=== PATIENT | male | born 1995 | race Caucasian/White ===

== ENCOUNTER 2021-03-14 20:00 | Emergency (ER) | payer MEDICAID, SELFPAY ==
[2021-03-14 21:15] VITALS: BP 122/59; PULSE 95; RESP 16; TEMP 36.4; O2SAT 98; BMI 30.9
--- NOTE | 2021-03-14 22:46 | ED.WOUNDLAC ---
HPI - Wound/Laceration General Chief Complaint: Wound/Laceration Stated Complaint: eyebrow inj Time Seen by Provider: 03/14/21 22:45 Source: patient Mode of arrival: ambulatory Limitations: no limitations History of Present Illness HPI narrative: hit heads with another player while playing basketball no LOC, no vomiting, laceration near R eyebrow Onset (ago): hour(s) Location: face Place: outdoors Patient tetanus UTD: Yes Context: accidental Associated symptoms: none Treatments prior to arrival: cold therapy Related Data Allergies Allergy/AdvReac Type Severity Reaction Status Date / Time bee pollen [BEE STINGS] Allergy Unknown ANAPHYLAXIS Unverified 08/17/20 16:25 pollen extracts [POLLEN] Allergy Unknown WATERY/ITCHY Unverified 08/17/20 16:25 EYES Review of Systems Review of Systems: Constitutional : No Fever, No Chills, Cardiovascular : No Chest Pain, No SOB Respiratory : No Dyspnea Gastrointestinal : No abdominal pain Musculoskeletal : No Joint Swelling Skin : No rash, positive skin laceration Neuro : No Weakness, No Numbness Psych : No SI/HI PMFSH Past Medical History Attestation statement: The following information was validated with the patient. Medical History No known health problems Social History Social History (Updated 03/14/21 @ 23:00 by Jyoti Meeks DO) Smoking Status: Never smoker Use of substances other than those prescribed or required for medical reasons: No Physical Exam Vital Signs: Vital Signs: Last Vital Signs Temp 97.6 F 03/14/21 21:15 Pulse 95 03/14/21 21:15 Resp 16 03/14/21 21:15 BP 122/59 L 03/14/21 21:15 Pulse Ox 98 03/14/21 21:15 Body Mass Index 30.9 Appearance: Alert. Oriented X3. No acute distress. Eyes: Pupils equal, round and reactive to light. ENT: Pharynx normal. R eyebrow area above and lateral 2 cm linear laceration noted, bleeding controlled, no crepitus felt Neck: Normal inspection. Neck supple. CVS: Normal heart rate and rhythm. Pulses normal. Respiratory: No respiratory distress. Breath sounds normal. Abdomen: Soft and nontender. Skin: Skin warm and dry. Normal skin color. Normal skin turgor. Extremities: No lower extremity edema. No calf ttp Neuro: Oriented X 3. No motor deficit. No sensory deficit. Procedures Laceration Laceration 1: Site: face Side (If applicable): left Size (cm): 2 Description: linear Depth: simple, single layer Pre-repair: wound explored and irrigated extensively Skin layer closed with: other (dermabond) MDM - Wound/Laceration MDM Narrative Medical decision making narrative: 25 yo male no AC therapy, GCS 15, no LOC, no vomiting, neuro intact here with laceration to R eyebrow patient offered sutures but wants dermabond due to a scar there would look cool. does not need CT head at this time, DC home with precautions Discharge Plan Discharge Clinical Impression: Laceration Head injury Qualifiers: Encounter type: initial encounter Qualified Code(s): S09.90XA - Unspecified injury of head, initial encounter Patient Disposition: Home, Self-Care Instructions: Skin Adhesive Care (ED), Facial Laceration (ED) Additional Instructions: return to ED for any worsening symptoms or concerns
[2021-03-14 22:57] VITALS: BP 121/71; PULSE 94; O2SAT 97
== END 2021-03-14 23:13 | disposition home or self-care (01) ==
LOC: HO.ED 23:10
PROVIDERS: Emergency Provider Emergency Medicine
DX: S09.90XA Unspecified injury of head, initial encounter (principal); S01.111A Laceration without foreign body of right eyelid and periocular area, initial encounter; W50.0XXA Accidental hit or strike by another person, initial encounter; Y93.67 Activity, basketball; Y92.310 Basketball court as the place of occurrence of the external cause; Y99.9 Unspecified external cause status
CPT/HCPCS: 99283

== ENCOUNTER 2021-03-16 20:25 | Emergency (ER) | payer MEDICAID, SELFPAY ==
--- NOTE | ~2021-03-16 | CT_ITS ---
EXAMINATION: CT HEAD WITHOUT CONTRAST CLINICAL INFORMATION: Headache and syncope following head injury. COMPARISON: 02/07/2015. TECHNIQUE: Contiguous helical images of the brain were obtained without IV contrast. Multiplanar reconstructions were performed. DLP: 727 mGy-cm. FINDINGS: There are no pathologic extra-axial fluid collections. The lateral, third, fourth ventricles are nondilated and concordant with the appearance of the sulci. There is no evidence for acute intraparenchymal hemorrhage or infarct. There is neither mass nor mass effect. There is no shift of midline structures. The paranasal sinuses and mastoid air cells are clear. There are no osseous lesions. CT/CT head/brain wo con IMPRESSION: No evidence for acute intracranial injury. Automated exposure control (Care Dose) Adjustment of the mA and/or kv according to patient size (this includes techniques or standardized protocols for targeted exams where dose is matched to indication / reason for exam; i.e. extremities or head).
[2021-03-16 20:29] VITALS: BP 124/62; PULSE 105; RESP 18; TEMP 37; O2SAT 100; BMI 31.7
--- NOTE | 2021-03-16 22:42 | ECG_ITS ---
Test Reason : SYNCOPE Blood Pressure : / mmHG Vent. Rate : 113 BPM Atrial Rate : 113 BPM P-R Int : 126 ms QRS Dur : 086 ms QT Int : 334 ms P-R-T Axes : 043 013 040 degrees QTc Int : 458 ms Sinus tachycardia Otherwise normal ECG No previous ECGs available Referred By: Theodora Sotelo Electronically Signed By:Oren Akers
[2021-03-16 23:26] LABS: MANUAL DIFF FLAG NO
[2021-03-16 23:28] LABS: Basophils Percent Auto 0.2 % (0-2); Eosinophils Percent Auto 0.2 % (0-4); Hemoglobin 14.9 g/dl (14.0-18.0); Imm Gran Abs Auto 0.02 X10*3/uL (0.00-0.03); Imm Gran Pct Auto 0.2 % (0.0-0.4); Lymphocytes Absolute Auto 1.9 X10*3/uL (1.2-4.9); Lymphocytes Percent Auto 21.1 % (20-40); Mean Corpuscular HGB Conc 33.1 g/dl (31.0-36.0); Mean Corpuscular Hemoglobin 27.7 pg (27.0-33.0); Mean Corpuscular Volume 83.6 fL (80-98); Mean Platelet Volume 10.3 fL (9.4-12.4); Monocytes Absolute Auto 1.1 X10*3/uL (0.1-1.2); Monocytes Percent Auto 12.1 % (2-11); Neutrophils Absolute Auto 5.8 X10*3/uL (2.0-8.3); Neutrophils Percent Auto 66.2 % (45-73); Platelet Count 217 X10*3/uL (160-400); Red Blood Count 5.38 X10*6/uL (4.60-5.80); Red Cell Distribution Width 12.7 % (11.0-16.0); White Blood Count 8.8 X10*3/uL (4.8-10.8)
[2021-03-16 23:48] LABS: Anion Gap 13 (12-20); Blood Urea Nitrogen 11 mg/dL (9-16); Calcium 8.7 mg/dL (8.4-10.2); Carbon Dioxide 27 mmol/L (22-29); Chloride 102 mmol/L (96-108); Creatinine Clr Calc Pharmacy 132.9; Estimated Glomerular Filt Rate > 60; Glucose Random 91 mg/dL (60-115); Potassium 3.8 mmol/L (3.3-5.1); Sodium 138 mmol/L (135-145)
[2021-03-16 23:55] LABS: Troponin-I High Sensitivity < 3.5 ng/L (<3.5-35.0)
[2021-03-17] VITALS (12 sets, daily range): BP systolic 90–131; BP diastolic 38–77; PULSE 77–111; RESP 16; TEMP 37–37.1; O2SAT 93–98
--- NOTE | 2021-03-17 00:08 | ED.GENADULT ---
HPI - General Adult General Chief complaint: Syncope Stated complaint: syncope (head inj) Time Seen by Provider: 03/16/21 22:34 Source: patient Mode of arrival: ambulatory Limitations: no limitations History of Present Illness HPI narrative: Patient comes emergency room complaining of a syncopal episode earlier today. Patient states he was seen here on March 14, had a laceration to the right eyebrow, diagnosed with concussion. Patient states that he had a head injury while playing basketball. Patient states that today he is complaining of a headache, feeling nauseous. Patient states that approximately 20:00 he was sitting down and had a syncopal episode. Patient states that before he passed out, he had blurry vision. At this time, patient states that he has no longer blurry vision, other than the headache and nausea he has no other complaints. Related Data Previous Rx's Medication Instructions Recorded ondansetron HCl [Zofran] 4 mg PO Q6H PRN #10 tab 03/17/21 Allergies Allergy/AdvReac Type Severity Reaction Status Date / Time bee pollen [BEE STINGS] Allergy Unknown ANAPHYLAXIS Unverified 08/17/20 16:25 pollen extracts [POLLEN] Allergy Unknown WATERY/ITCHY Unverified 08/17/20 16:25 EYES Review of Systems Review of Systems: Constitutional : No Weight loss, No Fever, No Chills, No Night Sweats, No Fatigue, No Malaise ENT/Mouth : No Hearing loss, No Ear Pain, No Nasal Congestion, No Sinus Pain, No Hoarseness, No sore throat, No Rhinorrhea, No Swallowing Difficulty Eyes: No Eye Pain, No Swelling, No Redness, No Foreign Body, No Discharge, states he has visual changes right before passing out, no longer having any visual changes Cardiovascular : No Chest Pain, No SOB, No Dyspnea on Exertion, No Orthopnea, No Edema, No Palpitations Respiratory : No Cough, No Sputum, No Wheezing, No Smoke Exposure, No Dyspnea Gastrointestinal : No Nausea, No Vomiting, No Diarrhea, No Constipation, No abdominal Pain, No Hematochezia, No Melena Genitourinary : no irregular bleeding, No Dysuria, No Urinary Frequency, No Hematuria, No Urinary Incontinence, No Urgency, No Flank Pain, No Urinary Flow Changes, No Hesitancy Musculoskeletal : No joint pain, No Myalgias, No Joint Swelling Skin : No Skin Lesions, No rash Neuro : No Weakness, No Numbness, No Paresthesias, complaining of headache, loss of consciousness Psych : No Anxiety/Panic, No Depression, No SI/HI/AH/VH, No Social Issues, Heme/Lymph: No Bruising, No Bleeding,No Lymphadenopathy Endocrine : No Polyuria, No Polydipsia, No Temperature Intolerance [facility] Past Medical History Medical History No known health problems Social History Social History (Updated 03/14/21 @ 23:00 by Jyoti Meeks DO) Smoking Status: Never smoker Advance Directives: No Advance Directives Information Provided: Yes Physical Exam Vital Signs: Vital Signs: Last Vital Signs Temp 98.6 F 03/17/21 01:59 Pulse 100 03/17/21 04:01 Resp 16 03/17/21 03:00 BP 117/38 L 03/17/21 04:01 Pulse Ox 93 03/17/21 03:00 Body Mass Index 31.7 Appearance: Alert. Oriented X3. No acute distress. Eyes: Pupils equal, round and reactive to light. ENT: Pharynx normal. Neck: Normal inspection. Neck supple. No lymph nodes noted. No crepitus CVS: Normal heart rate and rhythm. Pulses normal. Normal S1 and S2 Respiratory: No respiratory distress. Breath sounds normal. No Wheezing. No rales Abdomen: Soft and nontender. No rigidity. No distention. good BS x4 Skin: Skin warm and dry. Normal skin color. Normal skin turgor. Extremities: No lower extremity edema. No lower extremity edema. No Lacerations. No Rash Neuro: Oriented X 3. No motor deficit. No sensory deficit. Moving all extermities. No slurred speech. Course Course Course Narrative: Patient likely has a concussion. Patient's visual acuity test within normal limits. After 2 L of normal saline, patient's orthostatic within normal limits. Patient walking steadily to bathroom, not feeling dizzy. Patient ready for discharge Medical Decision Making Lab Data Result diagrams: 03/16/21 23:22 03/16/21 23:22 Labs: Lab Results 03/16/21 03/16/21 03/16/21 Range/Units 23:22 23:22 23:22 WBC 8.8 (4.8-10.8) X10*3/uL RBC 5.38 (4.60-5.80) X10*6/uL Hgb 14.9 (14.0-18.0) g/dl Hct 45.0 (42-52) % MCV 83.6 (80-98) fL MCH 27.7 (27.0-33.0) pg MCHC 33.1 (31.0-36.0) g/dl RDW 12.7 (11.0-16.0) % Plt Count 217 (160-400) X10*3/uL MPV 10.3 (9.4-12.4) fL Immature Gran % (Auto) 0.2 (0.0-0.4) % Neut % (Auto) 66.2 (45-73) % Lymph % (Auto) 21.1 (20-40) % Baldwin % (Auto) 12.1 H (2-11) % Eos % (Auto) 0.2 (0-4) % Baso % (Auto) 0.2 (0-2) % Lymph # (Auto) 1.9 (1.2-4.9) X10*3/uL Baldwin # (Auto) 1.1 (0.1-1.2) X10*3/uL Eos # (Auto) 0.0 (0.0-0.4) X10*3/uL Baso # (Auto) 0.0 (0.0-0.2) X10*3/uL Abs Immat Gran (auto) 0.02 (0.00-0.03) X10*3/uL Absolute Neuts (auto) 5.8 (2.0-8.3) X10*3/uL Absolute Nucleated RBC 0.000 (0.0-0.012) X10*3/uL Nucleated RBC % (auto) 0.0 (0.0-0.2) /100WBC Sodium 138 (135-145) mmol/L Potassium 3.8 (3.3-5.1) mmol/L Chloride 102 (96-108) mmol/L Carbon Dioxide 27 (22-29) mmol/L Anion Gap 13 (12-20) BUN 11 (9-16) mg/dL Creatinine 0.83 (0.5-1.4) mg/dL Estim Creat Clear Calc 132.9 Estimated GFR > 60 Random Glucose 91 (60-115) mg/dL Calcium 8.7 (8.4-10.2) mg/dL Troponin I High Sens < 3.5 (<3.5-35.0) ng/L Imaging Data CT scan - head: Radiologist's impression: FINDINGS: There are no pathologic extra-axial fluid collections. The lateral, third, fourth ventricles are nondilated and concordant with the appearance of the sulci. There is no evidence for acute intraparenchymal hemorrhage or infarct. There is neither mass nor mass effect. There is no shift of midline structures. The paranasal sinuses and mastoid air cells are clear. There are no osseous lesions. CT/CT head/brain wo con IMPRESSION: No evidence for acute intracranial injury. ECG Data Attestation: I personally reviewed and interpreted this ECG as follows: (Heart rate 113, sinus tachycardia, no ST segment depression or elevation, nonspecific T-wave abnormality in lead 3, QTC 458) Discharge Plan Discharge Clinical Impression: Orthostatic hypotension Concussion Qualifiers: Encounter type: subsequent encounter Patient Disposition: Home, Self-Care Instructions: Concussion (ED), Hypotension (ED) Additional Instructions: Please follow-up with your primary care physician tomorrow. If you have any worsening or new symptoms, please return to the emergency room or call 911 Prescriptions: New ondansetron HCl [Zofran] 4 mg tablet 4 mg PO Q6H PRN (Reason: nausea and vomiting) Qty: 10 RF: 0 Stand Alone Forms: Work/School Release Interventions: ED Discharge Assessment Last Done: 03/17/21 04:43 Discharge Date/Time: 03/17/21 04:44
--- NOTE | 2021-03-17 00:08 | PC.NURSE ---
pt resting quietly with lights off. pt requested a vicki britton, but medicated with zofran first. pt reports vomit x 1 after getting to room.
[2021-03-17] MEDS: 0.9 % Sodium Chloride 1,000 ML 999 ML IV (01:25)
[2021-03-17] MEDS: Acetaminophen 325 MG TABLET 650 MG PO (01:25)
[2021-03-17] MEDS: 0.9 % Sodium Chloride 1,000 ML 999 ML IVCONT (03:20)
== END 2021-03-17 04:44 | disposition home or self-care (01) ==
PROVIDERS: Emergency Provider Emergency Medicine
DX: I95.1 Orthostatic hypotension (principal); S06.0X0A Concussion without loss of consciousness, initial encounter; W03.XXXA Other fall on same level due to collision with another person, initial encounter; Y93.67 Activity, basketball; Y92.310 Basketball court as the place of occurrence of the external cause; Y99.9 Unspecified external cause status
CPT/HCPCS: 36415; 70450; 80048; 84484; 85025; 93005; 96360; 96361; 99284

== ENCOUNTER 2022-03-22 23:53 | Emergency (ER) | payer MEDICAID, SELFPAY ==
[2022-03-23 00:18] VITALS: BP 125/79; PULSE 113; RESP 18; TEMP 37.4; O2SAT 98; BMI 30.7
[2022-03-23 00:29] LABS: Influenza A Negative (Negative); Influenza B2 Negative (Negative)
[2022-03-23 00:29] LABS: COVID-19 Test Negative (Negative); IDNOW Serial# 55D5AD1C
--- NOTE | 2022-03-23 00:53 | ED_ITS ---
HPI - General Adult General Chief complaint: Upper Respiratory Symptoms Stated complaint: body aches, fever Time Seen by Provider: 03/23/22 00:44 Source: patient Mode of arrival: ambulatory Limitations: no limitations History of Present Illness HPI narrative: This is a 26-year-old male no significant medical history presenting to the emergency department with complaints of headache, body aches, subjective fevers and chills since this morning. Patient tells me he woke up this morning feeling horrible having diffuse body aches and pains, he tells me he is having headache mostly to the back of his head, he tells me it feels like his typical headache, he denies vision changes, neck pain, dizziness, head trauma. He tells me that the body aches came on suddenly however the headache was gradual in at times he tells me the headache goes away. Patient tells me earlier today he had some chest tightness however he is not having at this time. Patient tells me he is still able to smell things however he tells me he is sense of taste is altered in nothing taste right. At this time he denies chest pain, shortness of breath, nausea, vomiting, abdominal pain, diarrhea, weakness, dizziness, vision changes, neck pain, leg swelling, photophobia, calf pain, rhinnorhea, cough at this time. Patient does not have his vaccination for flu or COVID. Onset (ago): day(s) (1) Location: head Radiation: non-radiation Relieving factors: none Exacerbating factors: none Associated symptoms: denies other symptoms Treatments prior to arrival: none Related Data Previous Rx's Medication Instructions Recorded ondansetron HCl 4 mg tablet 4 mg PO Q6H PRN #10 tab 03/17/21 (Zofran) ondansetron 4 mg disintegrating 4 mg PO ONCE PRN #10 tab 03/23/22 tablet Allergies Allergy/AdvReac Type Severity Reaction Status Date / Time bee pollen [BEE STINGS] Allergy Unknown ANAPHYLAXIS Verified 03/23/22 00:21 pollen extracts [POLLEN] Allergy Unknown WATERY/ITCHY Verified 03/23/22 00:21 EYES Review of Systems Review of Systems: Constitutional : No Weight loss, + Fever, + Chills, + Fatigue, + Malaise ENT/Mouth : No sore throat, No Rhinorrhea Eyes: No Eye Pain, No Swelling, No Redness Cardiovascular : No Chest Pain, No SOB, No Dyspnea on Exertion, No Orthopnea, No Edema, No Palpitations Respiratory : No Cough, No Sputum, No Wheezing Gastrointestinal : No Nausea, No Vomiting, No Diarrhea, No Constipation, No abdominal Pain, No Hematochezia, No Melena Genitourinary : No Dysuria, No Urinary Frequency, No Hematuria, Musculoskeletal : No joint pain, No Myalgias, No Joint Swelling Skin : No Skin Lesions, No rash Neuro : No Weakness, No Numbness, No Dizziness, + Headache All other systems reviewed and are negative Yes all other systems are reviewed and are negative [facility] Past Medical History Attestation statement: The following information was validated with the patient. Source: old records reviewed and nursing notes reviewed Medical History No known health problems Social History Social History Advance Directives: No Physical Exam ED Vital Signs: Vital Signs - 24 hr 03/23/22 00:18 Temperature 99.3 F Pulse Rate 113 H Respiratory Rate 18 Blood Pressure 125/79 Pulse Oximetry 98 BMI result Body Mass Index 30.7 Vital signs stable Appearance: Alert.? Oriented X3.? No acute distress.? Head: Normocephalic, atraumatic, no step-offs or deformities Eyes: Pupils equal, round and reactive to light.? ENT: Pharynx normal.? Neck: Normal inspection.? Neck supple.? Negative Kernig and Brudzinski. No meningeal signs CVS: Normal heart rate and rhythm.? Pulses normal.? Respiratory: No respiratory distress.? Breath sounds normal.? Abdomen: Soft and nontender.? Skin: Skin warm and dry.? Normal skin color.? Normal skin turgor.? Extremities: No lower extremity edema.? No calf ttp, negative Jeffrey bilaterally. 5/5 strength to bilateral upper and lower extremities Back: No midline tenderness, no C-spine tenderness, full range of motion, no CVA tenderness bilaterally Neuro: Oriented X 3.? No motor deficit.? No sensory deficit. CN 2-12 intact Course Reevaluation(s) Reevaluation #1: Educated patient that he can take ibuprofen every 6 hours, Tylenol every 4 as needed for body aches or pains. I also educated him that since symptoms started this morning it is probably a good idea to retest in 2-3 days. Advised him to return with any new or worsening symptoms. At this time I feel comfortable discharge home likely viral infection. Time: 00:57 Medical Decision Making [facility] Narrative Medical decision making narrative: [address]55 26-year-old male no medical history presents with sudden-onset fevers this morning, malaise, fatigue, body aches, headache which started this morning. Physical examination benign. Neuro exam nonfocal. Cerebellar function intact. Vital signs stable, he is noted to be slightly tachycardic however likely secondary to low-grade fever from viral infection. History and physical examination not consistent with ICH, complex migraine, posterior infarct, stroke. Likley flu, covid or viral infection . Lungs clear unlikely that this is pneumonia. No meningeal signs unlikely that this is meningitis. Plan at this time is to obtain flu/covid swab Medical Records Medical records reviewed: Yes I reviewed the patient's medical records. Lab Data Lab results reviewed: Yes I reviewed the patient's lab results. Labs: Lab Results 03/23/22 03/23/22 Range/Units 00:08 00:09 COVID-19 ([facility]) Negative (Negative) COVID-19 Clin Com See Note Influenza Type A (SHAUN) Negative (Negative) Influenza Type B (SHAUN) Negative (Negative) Influenza A & B Note See Note Critical Care Time Critical Care Time Critical Care Time: No Discharge Plan Discharge Clinical Impression: Viral infection Patient Disposition: Home, Self-Care Additional Instructions: Take your medications as prescribed. If you were prescribed antibiotics today, it is important that you take your medication to their entirety, do not skip any doses, do not finish them early. Follow-up with your primary care provider this week. Return to the emergency department with new or worsening symptoms. Such as fevers, chills, chest pain, shortness of breath, nausea, vomiting, dizziness, headache, vision changes, lethargy, weakness, not eating or drinking In case of emergency call 911 Today you tested negative for influenza and COVID. I recommend you get retested for both in 2-3 days as your symptoms just started today it is likely that you tested negative because it is too soon to test. Please quarantine/isolate until you retest. Zofran is medication that has been sent to her pharmacy please take this as prescribed, do not take more than the prescribed dose. This can be used for nausea or vomiting. Make sure you get plenty of rest and drink plenty of fluids. Prescriptions: New ondansetron 4 mg tablet,disintegrating 4 mg PO ONCE PRN (Reason: nausea and vomiting) Qty: 10 0RF No Action ondansetron HCl [Zofran] 4 mg tablet 4 mg PO Q6H PRN (Reason: nausea and vomiting) Qty: 10 0RF Referrals: Physician,Unknown J [Primary Care Provider] - 3 days Stand Alone Forms: Work/School Release
[2022-03-23] MEDS: Ketorolac Tromethamine 15 MG/ML VIAL 30 MG IM (01:11)
[2022-03-23] MEDS: diphenhydrAMINE HCL 25 MG TABLET PO (01:12)
== END 2022-03-23 01:18 | disposition home or self-care (01) ==
PROVIDERS: Emergency Provider Internal Medicine
DX: B34.9 Viral infection, unspecified (principal); M79.10 Myalgia, unspecified site; R50.9 Fever, unspecified; Z20.822 Contact with and (suspected) exposure to COVID-19; Z79.899 Other long term (current) drug therapy
CPT/HCPCS: 87502; 87635; 96372; 99283; 99284; J1885; Q0163

== ENCOUNTER 2022-04-17 08:57 | Emergency (ER) | payer MEDICAID, SELFPAY ==
[2022-04-17 09:01] VITALS: BP 135/78; PULSE 77; RESP 18; TEMP 36.7; O2SAT 98; BMI 29.0
[2022-04-17 09:22] LABS: COVID-19 Test Positive (Negative)
[2022-04-17 09:39] LABS: IDNOW Serial# 16C4AD1C; Influenza A Negative (Negative); Influenza B2 Negative (Negative)
--- NOTE | 2022-04-17 12:37 | ED_ITS ---
HPI - General Adult General Chief complaint: General Medical Stated complaint: throat, possible covid Time Seen by Provider: 04/17/22 12:37 Source: patient Mode of arrival: ambulatory Limitations: no limitations History of Present Illness HPI narrative: Patient not feeling well for 4 days, home COVID is positive. He has a little cough. Patient is not vaccinated Onset (ago): day(s) Severity: mild Associated symptoms: cough Treatments prior to arrival: none Related Data Previous Rx's Medication Instructions Recorded ondansetron HCl 4 mg tablet 4 mg PO Q6H PRN #10 tab 03/17/21 (Zofran) acetaminophen 325 mg tablet 650 mg PO Q6H PRN #20 tab 03/23/22 (Tylenol) ondansetron 4 mg disintegrating 4 mg PO ONCE PRN #10 tab 03/23/22 tablet amoxicillin 875 mg tablet 875 mg PO BID #14 tab 04/17/22 [id number] 5 10 ml PO Q4H PRN #120 ml 04/17/22 mg-10 mg-100 mg/5 mL oral liquid Allergies Allergy/AdvReac Type Severity Reaction Status Date / Time bee pollen [BEE STINGS] Allergy Unknown ANAPHYLAXIS Verified 03/23/22 00:21 pollen extracts [POLLEN] Allergy Unknown WATERY/ITCHY Verified 03/23/22 00:21 EYES Review of Systems Constitutional: Constitutional: Reports no additional constitutional complaints Eyes: Eyes: Reports no additional eye complaints ENT: Denies dizziness Cardiovascular: Cardiovascular: Reports no additional cardiovascular complaints Respiratory: Respiratory: Reports as per HPI Gastrointestinal: Gastrointestinal: Reports no additional gastrointestinal complaints Musculoskeletal: Musculoskeletal: Reports no additional musculoskeletal complaints Integumentary/Breasts: Skin/Breast: Denies rash Neurologic: Reports system reviewed and no additional complaints, except as d ocumented, Denies dizziness and Denies Sensory deficit (Neuro) Psychiatric: Psychiatric: Denies anxiety PMFSH Past Medical History Medical History No known health problems Physical Exam ED Vital Signs: Vital Signs - 24 hr 04/17/22 09:01 Temperature 98.1 F Pulse Rate 77 Respiratory Rate 18 Blood Pressure 135/78 Pulse Oximetry 98 BMI result Body Mass Index 29.0 Const General: healthy appearing Nutritional Appearance: average body habitus Orientation/consciousness: oriented to person and patient oriented x3 Limitations: no limitations HENMT Other: right TM with erythema and bulging Head: Yes normal to inspection Ears: external ears normal General nose exam: Normal external nose present Mouth: Normal oral and palatal mucosa present and oropharynx normal Throat: Yes posterior oropharynx normal Eyes General: appearance normal, both eyes and all related structures Neck Neck: Yes normal visual inspection Chest Chest palpation & inspection: normal inspection of the chest Resp Auscultation: clear to auscultation bilaterally Cardio Jugular venous distension: no JVD Rate: regular rate Rhythm: regular rhythm Heart sounds: S1 normal heart sound present and S2 normal heart sound present GI Inspection: Yes normal to inspection Palpation (GI): Soft to palpation, nontender and No hepatosplenomegaly present Auscultation: normal bowel sounds General: Yes no CVA tenderness Back/Spine/Pelvis Back: no CVA tenderness Skin General skin exam: no rashes or lesions noted Neuro General: oriented to person and patient oriented x3 Cranial nerves: Yes CN's II-XII intact bilaterally Motor exam (neuro): 5/5 motor strength present throughout Sensory Exam: No Sensory deficit (Neuro) Extrem General: Yes normal to inspection Psych Appearance: grossly normal Course Reevaluation(s) Reevaluation #1: patient with covid and right otitis media will start amoxicillin and robitussin and dc home Time: 12:46 Medical Decision Making Lab Data Labs: Lab Results 04/17/22 04/17/22 Range/Units 09:10 09:10 COVID-19 ([facility]) Positive A (Negative) COVID-19 Clin Com See Note Influenza Type A (SHAUN) Negative (Negative) Influenza Type B (SHAUN) Negative (Negative) Influenza A & B Note See Note Discharge Plan Discharge Clinical Impression: COVID-19, Otitis media Patient Disposition: Home, Self-Care Instructions: Ear Infection (ED), COVID-19 (Coronavirus Disease 2019) (ED) Prescriptions: New pycaseyqtdvzz-ZL-vsqhmhxvmym 5-10-100 mg/5 mL liquid 10 ml PO Q4H PRN (Reason: cough) Qty: 120 0RF amoxicillin 875 mg tablet 875 mg PO BID Qty: 14 0RF No Action ondansetron HCl [Zofran] 4 mg tablet 4 mg PO Q6H PRN (Reason: nausea and vomiting) Qty: 10 0RF ondansetron 4 mg tablet,disintegrating 4 mg PO ONCE PRN (Reason: nausea and vomiting) Qty: 10 0RF acetaminophen [Tylenol] 325 mg tablet 650 mg PO Q6H PRN (Reason: fever or pain) Qty: 20 0RF Referrals: Physician,None [Primary Care Provider] - 1 week Stand Alone Forms: Work/School Release
== END 2022-04-17 13:50 | disposition home or self-care (01) ==
PROVIDERS: Emergency Provider Emergency Medicine
DX: U07.1 COVID-19 (principal); H66.91 Otitis media, unspecified, right ear
CPT/HCPCS: 87502; 87635; 99283

== ENCOUNTER 2022-05-21 09:06 | Emergency (ER) | payer MEDICAID, SELFPAY ==
[2022-05-21 09:08] VITALS: BP 135/97; PULSE 100; RESP 18; TEMP 36.8; O2SAT 98; BMI 29.7
[2022-05-21] MEDS: Lidocaine 4 % Cream KIT 1 APPL TOPICAL (09:36)
--- NOTE | 2022-05-21 09:39 | ED_ITS ---
HPI - Extremity Problem General Chief complaint: Extremity Problem Stated complaint: finger right inj Time Seen by Provider: 05/21/22 09:23 Source: patient Mode of arrival: ambulatory Limitations: no limitations History of Present Illness HPI Narrative: 27-year-old male here with 3 days of right middle finger swelling, redness and pain. No fevers or chills. No known injury or trauma. Related Data Previous Rx's Medication Instructions Recorded ondansetron HCl 4 mg tablet 4 mg PO Q6H PRN nausea and 03/17/21 (Zofran) vomiting #10 tabs acetaminophen 325 mg tablet 650 mg PO Q6H PRN fever or pain 03/23/22 (Tylenol) #20 tabs ondansetron 4 mg disintegrating 4 mg PO ONCE PRN nausea and 03/23/22 tablet vomiting #10 tabs amoxicillin 875 mg tablet 875 mg PO BID #14 tabs 04/17/22 dextromethorphan-guaifenesin 5 10 ml PO Q4-8H PRN cough #118 mL 04/17/22 mg-100 mg/5 mL oral liquid (Robitussin Cough-Chest Congestion DM) doxycycline monohydrate 100 mg 100 mg PO BID #20 tabs 05/21/22 tablet Allergies Allergy/AdvReac Type Severity Reaction Status Date / Time bee pollen [BEE STINGS] Allergy Unknown ANAPHYLAXIS Verified 05/21/22 09:08 pollen extracts [POLLEN] Allergy Unknown WATERY/ITCHY Verified 05/21/22 09:08 EYES Review of Systems Review of Systems: Yes all other systems are reviewed and are negative Constitutional: Constitutional: Reports no additional constitutional complaints, Denies body ache(s), Denies chills, Denies fever(s), Denies headache(s) and Denies weakness Eyes: Eyes: Reports no additional eye complaints and Denies change in vision ENT: Reports system reviewed and no additional complaints, except as documented, Denies dizziness, Denies headache(s), Denies nasal congestion, Denies nasal discharge and Denies neck pain Cardiovascular: Cardiovascular: Reports no additional cardiovascular complaints, Denies chest pain, Denies leg edema and Denies dyspnea Respiratory: Respiratory: Reports no additional respiratory complaints, Denies cough and Denies dyspnea Gastrointestinal: Gastrointestinal: Reports no additional gastrointestinal complaints, Denies abdominal pain, Denies diarrhea, Denies nausea and Denies vomiting Genitourinary: Genitourinary: Denies urinary incontinence Musculoskeletal: Musculoskeletal: Reports no additional musculoskeletal complaints, Denies back pain, Denies arthralgias, Denies joint swelling, Denies neck pain, Denies numbness and Denies tingling Integumentary/Breasts: Skin/Breast: Reports system reviewed and no additional complaints, except as docu, Reports swelling, Reports erythema and Denies rash Neurologic: Reports system reviewed and no additional complaints, except as documented, Denies Abnormal speech present, Denies dizziness, Denies headache( s), Denies numbness, Denies tingling and Denies weakness [facility] Past Medical History Attestation statement: The following information was validated with the patient. Source: old records reviewed and nursing notes reviewed Medical History No known health problems Social History Social History Advance Directives: No Advance Directives Information Provided: No Physical Exam Vital Signs: Vital Signs: Last Vital Signs Temp 98.2 F 05/21/22 09:08 Pulse 100 05/21/22 09:08 Resp 18 05/21/22 09:08 BP 135/97 H 05/21/22 09:08 Pulse Ox 98 05/21/22 09:08 O2 Del Method 05/21/22 09:08 BMI result Body Mass Index 29.7 Const: General: cooperative, healthy appearing, comfortable and no acute distress Orientation/consciousness: patient oriented x3 Limitations: no limitations HEENT: Head: Yes normal to inspection Ears: hearing grossly normal bilaterally General nose exam: Normal external nose present Face and sinus: Yes normal facial exam Mouth: Normal oral and palatal mucosa present Throat: Yes posterior oropharynx normal Eyes: General: appearance normal, both eyes and all related structures Pupils: Equal, round and reactive pupils present Neck: Neck: Yes normal visual inspection Chest: Chest palpation & inspection: normal inspection of the chest Resp: Effort & Inspection: normal respiratory effort Auscultation: clear to auscultation bilaterally Cardio: Rate: regular rate Rhythm: regular rhythm Peripheral pulses: Peripheral pulses 2+ throughout GI: Inspection: Yes normal to inspection Palpation (GI): Soft to palpation and nontender Auscultation: normal bowel sounds Back/Spine/Pelvis: Thoracic/Lumbar Spine: thoracic and lumbar spine normal to inspection Skin: General skin exam: no rashes or lesions noted Neuro: General: patient oriented x3, no focal motor deficits and normal sensation to monofilament Cranial nerves: Yes Equal, round and reactive pupils present Cognition (Neuro): normal cognition Speech: No Abnormal speech present Gait exam (Neuro): Normal gait present Motor exam (neuro): 5/5 motor strength present throughout Extrem: Other: To the right hand to the 3rd digit to the distal aspect there is swelling, redness and fluctuance along the nail bed. There is full range of motion. Sensation is normal General: Yes normal to inspection Course Course Course Narrative: See procedure note. Bandage applied. Recommend warm compresses or warm soaks with Epson salts and oral antibiotics. Reviewed worrisome signs and symptoms of when to return to the emergency department. Comfortable discharge home MDM - Extremity (Nontraumatic) MDM Narrative Medical decision making narrative: 27-year-old male here with right 3rd digit paronychia. Will require I& D. Topical LMX for pain control apply Medical Records Attestation: I reviewed the patient's medical records. Lab Data Attestation: I reviewed the patient's lab results. Procedures Abscess I/D Site: hand (Right 3rd digit) Side (if applicable): right Local Anesthetic: other anesthetic (Topical lmx) Technique: needle aspiration Sent for culture/gram staining?: No Irrigation: No Packing used?: none Discharge Plan Discharge Clinical Impression: Paronychia of finger Patient Disposition: Still a Patient Instructions: Paronychia (ED) Additional Instructions: Epsom salt soaks with warm water 3-4 times daily Take the antibiotic with food Motrin or Tylenol for pain or fever as needed Prescriptions: New doxycycline monohydrate 100 mg tablet 100 mg PO BID Qty: 20 0RF No Action ondansetron HCl [Zofran] 4 mg tablet 4 mg PO Q6H PRN (Reason: nausea and vomiting) Qty: 10 0RF ondansetron 4 mg tablet,disintegrating 4 mg PO ONCE PRN (Reason: nausea and vomiting) Qty: 10 0RF acetaminophen [Tylenol] 325 mg tablet 650 mg PO Q6H PRN (Reason: fever or pain) Qty: 20 0RF amoxicillin 875 mg tablet 875 mg PO BID Qty: 14 0RF Robitussin Cough-Chest Esteban DM 5-100 mg/5 mL liquid 10 ml PO Q4-8H PRN (Reason: cough) Qty: 118 0RF Referrals: Physician,None [Primary Care Provider] - 1 week (For persistent symptoms) Interventions: ED Discharge Assessment Last Done: 05/21/22 10:30 Discharge Date/Time: 05/21/22 10:30
== END 2022-05-21 10:30 | disposition still patient (30) ==
PROVIDERS: Emergency Provider Emergency Medicine
DX: L03.011 Cellulitis of right finger (principal)
CPT/HCPCS: 26010; 99283

== ENCOUNTER 2022-05-23 10:05 | Emergency (ER) | payer MEDICAID, SELFPAY ==
[2022-05-23 10:26] VITALS: BP 110/73; PULSE 110; RESP 18; TEMP 37.2; O2SAT 97; BMI 29.7
[2022-05-23] MEDS: Lidocaine 4 % Cream KIT 1 APPL TOPICAL (12:12)
[2022-05-23] MEDS: Diphth,Pertus(ACell),Tet Adult 0.5 ML SYRINGE IM (12:16)
--- NOTE | 2022-05-23 12:50 | ED_ITS ---
HPI - Skin/Abscess/Foreign Bdy General Chief complaint: Skin/Abscess/Foreign Body Stated complaint: prior finger injury Time Seen by Provider: 05/23/22 11:44 Source: patient Mode of arrival: ambulatory Limitations: no limitations History of Present Illness HPI narrative: 27-year-old male presents with paronychia of 3rd right finger. Patient was seen here 2 days ago, has had symptoms for 4 days, patient has not filled his prescription for doxycycline. No fevers, no other complaints. Related Data Previous Rx's Medication Instructions Recorded ondansetron HCl 4 mg tablet 4 mg PO Q6H PRN nausea and 03/17/21 (Zofran) vomiting #10 tabs acetaminophen 325 mg tablet 650 mg PO Q6H PRN fever or pain 03/23/22 (Tylenol) #20 tabs ondansetron 4 mg disintegrating 4 mg PO ONCE PRN nausea and 03/23/22 tablet vomiting #10 tabs amoxicillin 875 mg tablet 875 mg PO BID #14 tabs 04/17/22 dextromethorphan-guaifenesin 5 10 ml PO Q4-8H PRN cough #118 mL 04/17/22 mg-100 mg/5 mL oral liquid (Robitussin Cough-Chest Congestion DM) doxycycline monohydrate 100 mg 100 mg PO BID #20 tabs 05/21/22 tablet Allergies Allergy/AdvReac Type Severity Reaction Status Date / Time bee pollen [BEE STINGS] Allergy Unknown ANAPHYLAXIS Verified 05/21/22 09:08 pollen extracts [POLLEN] Allergy Unknown WATERY/ITCHY Verified 05/21/22 09:08 EYES Review of Systems Constitutional: Constitutional: Denies body ache(s), Denies chills, Denies fatigue, Denies fever(s), Denies malaise and Denies weakness Cardiovascular: Cardiovascular: Denies chest pain, Denies syncope, Denies leg edema, Denies lightheadedness, Denies Loss of Consciousness, Denies palpitations and Denies dyspnea Respiratory: Respiratory: Denies chest congestion, Denies cough and Denies dyspnea Musculoskeletal: Musculoskeletal: Reports no additional musculoskeletal complaints, Denies deformity, Denies arthralgias, Denies joint swelling, Denies numbness, Denies radiating pain into limb and Denies stiffness Integumentary/Breasts: Comments: Redness and pus along the nail bed of right 3rd finger Neurologic: Denies confusion, Denies syncope, Denies numbness and Denies weak ness Psychiatric: Psychiatric: Denies anxiety, Denies confusion and Denies depression Endocrine: Endocrine: Denies fatigue and Denies palpitations PMFSH Past Medical History Medical History No known health problems Social History Social History Advance Directives: No Advance Directives Information Provided: No Physical Exam Vital Signs: Vital Signs: Last Vital Signs Temp 99 F 05/23/22 10:26 Pulse 110 H 05/23/22 10:26 Resp 18 05/23/22 10:26 BP 110/73 05/23/22 10:26 Pulse Ox 97 05/23/22 10:26 O2 Del Method 05/23/22 10:26 BMI result Body Mass Index 29.7 Const: General: No confusion Nutritional Appearance: well nourished Orientation/consciousness: No confusion Limitations: no limitations Eyes: Conjunctivae: conjunctivae normal Pupils: Equal, round and reactive pupils present EOM: EOMs intact bilaterally Neck: Neck: Yes full ROM, Yes no lymphadenopathy and Yes supple Resp: Effort & Inspection: normal respiratory effort and able to speak in complete sentences Auscultation: clear to auscultation bilaterally, no crackles, no rales, no rhonchi and no wheezes Cardio: Rate: regular rate Rhythm: regular rhythm Heart sounds: S1 normal heart sound present and S2 normal heart sound present Skin: Other: Mild erythema and swelling on the ulnar side of right 3rd fingernail with pus collection along nail bed Neuro: General: No confusion Cranial nerves: Yes Equal, round and reactive pupils present Extrem: Right upper extremity: normal to inspection, full ROM, normal capillary refill and Extremity exam: right hand Details: normal capillary refill, neuromotor exam normal, neurosensory exam normal, tenderness Location: of the 3rd digit, normal ROM of fingers and swelling; no unusual warmth; no cyanosis and no edema Psych: Appearance: grossly normal Affect: normal affect Attitude: cooperative Thought process: Normal thought process present Course Course Course Narrative: 27-year-old male who is here for a paronychia of his right 3rd finger, who was prescribed doxycycline 2 days ago when he was seen here in the emergency room 2 days ago, has not filled his prescription for doxycycline, andhis finger is no better. On exam, patient has pus pocket along the ulnar side of his right 3rd finger, mild swelling and erythema. Vital signs are stable. Applied lidocaine cream, used 18 gauge needle to expressed 1 cm of pus, gave 1 dose of doxycycline, stressed importance of some of continuing doxycycline medication, counseled warm water soaks, counseled patient to return in 2 days for recheck of his finger Discharge Plan Discharge Clinical Impression: Paronychia of finger of right hand Patient Disposition: Home, Self-Care Instructions: Paronychia (ED) Additional Instructions: Please use warm soaks of your right hand, soak for 10 minutes at a time 4 times a day, please fill your prescription for doxycycline and take it as prescribed. Please return to emergency room 5 days for recheck of your right 3rd finger, please return sooner if you have fevers or any other new or concerning symptoms Prescriptions: No Action ondansetron HCl [Zofran] 4 mg tablet 4 mg PO Q6H PRN (Reason: nausea and vomiting) Qty: 10 0RF ondansetron 4 mg tablet,disintegrating 4 mg PO ONCE PRN (Reason: nausea and vomiting) Qty: 10 0RF acetaminophen [Tylenol] 325 mg tablet 650 mg PO Q6H PRN (Reason: fever or pain) Qty: 20 0RF doxycycline monohydrate 100 mg tablet 100 mg PO BID Qty: 20 0RF amoxicillin 875 mg tablet 875 mg PO BID Qty: 14 0RF Robitussin Cough-Chest Esteban DM 5-100 mg/5 mL liquid 10 ml PO Q4-8H PRN (Reason: cough) Qty: 118 0RF
== END 2022-05-23 13:03 | disposition home or self-care (01) ==
PROVIDERS: Emergency Provider Student in an Organized Health Care Education/Training Program
DX: L03.011 Cellulitis of right finger (principal)
CPT/HCPCS: 10160; 90471; 90715; 99283; 99284

== ENCOUNTER 2022-05-25 16:37 | Emergency (ER) | payer MEDICAID, SELFPAY ==
[2022-05-25 17:10] VITALS: BP 109/59; PULSE 64; RESP 18; TEMP 36.4; O2SAT 100; BMI 29.8
--- NOTE | 2022-05-25 17:42 | ED.EXTPRO ---
HPI - Extremity Problem General Chief complaint: Extremity Injury, Upper Stated complaint: Infected finger Time Seen by Provider: 05/25/22 17:42 Source: patient Mode of arrival: ambulatory Limitations: no limitations History of Present Illness HPI Narrative: Patient is a 27 year old male presenting to the emergency department today for reevaluation of his middle finger on his right middle finger. Patient states that he has been seen here a few times for this and has been soaking it and taking his antibiotics. Patient denies any dizziness, lightheadedness, abdominal pain, nausea, vomiting, fever, chills, blurry vision, double vision, loss of vision, chest pain, difficulty breathing, shortness of breath, back pain, night sweats, pain with urination, increased urinary frequency, increased urinary urgency, blood in his urine or stool, syncope or a near syncopal episode, recent trauma or falls, bowel incontinence, bladder incontinence, bowel retention, bladder retention, or any other complaints at this time. MD Complaint: extremity pain Onset (ago): day(s) Pain Consistency: constant Location: right and upper extremity (middle finger) Severity scale (1-10): 2 Quality: aching and dull Radiation: none Relieving factors: nothing Exacerbating factors: nothing Associated symptoms: denies other symptoms Related Data Previous Rx's Medication Instructions Recorded ondansetron HCl 4 mg tablet 4 mg PO Q6H PRN nausea and 03/17/21 (Zofran) vomiting #10 tabs acetaminophen 325 mg tablet 650 mg PO Q6H PRN fever or pain 03/23/22 (Tylenol) #20 tabs ondansetron 4 mg disintegrating 4 mg PO ONCE PRN nausea and 03/23/22 tablet vomiting #10 tabs amoxicillin 875 mg tablet 875 mg PO BID #14 tabs 04/17/22 dextromethorphan-guaifenesin 5 10 ml PO Q4-8H PRN cough #118 mL 04/17/22 mg-100 mg/5 mL oral liquid (Robitussin Cough-Chest Congestion DM) doxycycline monohydrate 100 mg 100 mg PO BID #20 tabs 05/21/22 tablet Allergies Allergy/AdvReac Type Severity Reaction Status Date / Time bee pollen [BEE STINGS] Allergy Unknown ANAPHYLAXIS Verified 05/21/22 09:08 pollen extracts [POLLEN] Allergy Unknown WATERY/ITCHY Verified 05/21/22 09:08 EYES Review of Systems Constitutional: Constitutional: Reports no additional constitutional complaints, Denies chills, Denies fever(s) and Denies night sweats Eyes: Eyes: Reports no additional eye complaints, Denies blurry vision, Denies change in vision, Denies diplopia, Denies eye discharge, Denies loss of vision and Denies eye pain ENT: Denies dizziness Cardiovascular: Cardiovascular: Reports no additional cardiovascular complaints, Denies chest pain, Denies lightheadedness, Denies Loss of Consciousness and Denies dyspnea Respiratory: Respiratory: Reports no additional respiratory complaints and Denies dyspnea Gastrointestinal: Gastrointestinal: Reports no additional gastrointestinal complaints, Denies abdominal pain, Denies melena, Denies hematochezia, Denies change in bowel habits and Denies change in stool character Genitourinary: Genitourinary: Reports no additional male genitourinary complaints, Denies hematuria, Denies oliguria, Denies difficulty urinating, Denies dysuria, Denies urinary frequency, Denies urinary hesitancy, Denies urinary incontinence and Denies urinary urgency Musculoskeletal: Musculoskeletal: Reports no additional musculoskeletal complaints, Denies numbness and Denies tingling Comments: swelling to the right middle finger Neurologic: Denies dizziness, Denies loss of vision, Denies numbness and Denies tingling Psychiatric: Psychiatric: Reports no additional psychiatric complaints Endocrine: Endocrine: Reports no additional endocrine complaints Hematologic/Lymphatic: Hematologic/Lymphatic: Reports no additional hematologic/lymphatic complaints Allergic/Immunologic: Allergic/Immunologic: Reports no additional allergic/immunologic complaints [facility] Past Medical History Attestation statement: The following information was validated with the patient. Source: old records reviewed Medical History No known health problems Social History Social History Advance Directives: No Advance Directives Information Provided: No Physical Exam Vital Signs: Vital Signs: Last Vital Signs Temp 98.1 F 05/25/22 18:03 Pulse 77 05/25/22 18:03 Resp 19 05/25/22 18:03 BP 115/67 05/25/22 18:03 Pulse Ox 98 05/25/22 18:03 O2 Del Method 05/25/22 18:03 BMI result Body Mass Index 29.8 Const: General: cooperative, no acute distress, alert and awake Nutritional Appearance: well nourished Orientation/consciousness: patient oriented x3 Limitations: no limitations HEENT: Head: Yes normal to inspection and Yes atraumatic Ears: hearing grossly normal bilaterally and external ears normal General nose exam: Normal external nose present, no nasal discharge noted and no epistaxis Face and sinus: Yes normal facial exam, No abrasion and No laceration Mouth: Normal oral and palatal mucosa present, no drooling and no muffled voice Eyes: General: appearance normal, both eyes and all related structures Periorbital: periorbital findings normal Eyelids: Yes eyelids normal Conjunctivae: conjunctivae normal Pupils: Equal, round and reactive pupils present EOM: EOMs intact bilaterally Neck: Neck: Yes normal visual inspection, Yes full ROM and Yes no lymphadenopathy Chest: Chest palpation & inspection: normal inspection of the chest Resp: Effort & Inspection: normal respiratory effort and able to speak in complete sentences Auscultation: clear to auscultation bilaterally Cardio: Rate: regular rate Rhythm: regular rhythm GI: Inspection: Yes normal to inspection Neuro: General: patient oriented x3 and moves all extremities Cranial nerves: Yes Equal, round and reactive pupils present Cognition (Neuro): normal cognition Motor exam (neuro): 5/5 motor strength present throughout Sensory Exam: Normal double simultaneous stimulation for sensation Coordination: [id number] test normal Extrem: Other: mild erythema and swelling to the right 3rd finger General: Yes full ROM and Yes capillary refill normal Psych: Appearance: grossly normal Mental Status: mental status grossly normal Affect: normal affect Attitude: cooperative Thought process: Normal thought process present Thought content: Normal thought content present Insight: Good insight present (Psych) MDM - Extremity (Nontraumatic) MDM Narrative Medical decision making narrative: Patient is a 27 year old male presenting to the emergency department today for reevaluation of his right middle finger. Patient's physical exam showed mild erythema and swelling to the right middle finger but nothing that needed acute expression. I explained my physical exam findings to the patient. I answered all questions asked by the patient. I stressed the importance of the patient taking his medication as prescribed. I stressed the importance of the patient following up with his primary care provider and with a general surgeon. I stressed the importance of the patient returning to the emergency department immediately if his symptoms were to worsen or if he were to develop any dizziness, shortness of breath, difficulty breathing, chest pain, blurry vision, loss of vision, nausea, vomiting, abdominal pain, fever, chills, back pain, or any other complaints. Patient verbalized agreement and understanding with this treatment plan and discharge. Differential Diagnosis Differential diagnosis: Likely cellulitis Medical Records Attestation: I reviewed the patient's medical records. Discharge Plan Discharge Clinical Impression: Paronychia of finger Patient Disposition: Home, Self-Care Instructions: Paronychia (ED) Additional Instructions: Continue taking your medication as perscribed and soaking it as previously indiciated. Follow up with your primary care provider and a general surgeon. Return to the emergency department immediately if your symptoms worsen or if you develop any dizziness, shortness of breath, difficulty breathing, chest pain, blurry vision, loss of vision, nausea, vomiting, abdominal pain, fever, chills, back pain, or any other complaints. Prescriptions: No Action ondansetron HCl [Zofran] 4 mg tablet 4 mg PO Q6H PRN (Reason: nausea and vomiting) Qty: 10 0RF ondansetron 4 mg tablet,disintegrating 4 mg PO ONCE PRN (Reason: nausea and vomiting) Qty: 10 0RF acetaminophen [Tylenol] 325 mg tablet 650 mg PO Q6H PRN (Reason: fever or pain) Qty: 20 0RF doxycycline monohydrate 100 mg tablet 100 mg PO BID Qty: 20 0RF amoxicillin 875 mg tablet 875 mg PO BID Qty: 14 0RF Robitussin Cough-Chest Esteban DM 5-100 mg/5 mL liquid 10 ml PO Q4-8H PRN (Reason: cough) Qty: 118 0RF Referrals: [facility] Family Medicine [Provider Group] (Call to establish and follow up with a primary care provider. If you have a primary care provider, follow up with them. ) [facility] Primary [facility] [Provider Group] (Call to establish and follow up with a primary care provider. If you have a primary care provider, follow up with them. ) [facility] Primary Care,[facility] [Provider Group] (Call to establish and follow up with a primary care provider. If you have a primary care provider, follow up with them. ) John Vigil MD [Physician] - (Call on Friday to schedule an appointment.) Stand Alone Forms: Work/School Release Print Language: [place]
[2022-05-25 18:03] VITALS: BP 115/67; PULSE 77; RESP 19; TEMP 36.7; O2SAT 98
== END 2022-05-25 18:34 | disposition home or self-care (01) ==
PROVIDERS: Emergency Provider Emergency Medicine
DX: L03.011 Cellulitis of right finger (principal)
CPT/HCPCS: 99282

== ENCOUNTER 2022-05-28 15:38 | Outpatient (REF) | payer MEDICAID, SELFPAY | END 2022-05-28 15:39 | disposition home or self-care (01) | LOC: HO.HOSX 15:38 | PROVIDERS: Visit Provider Orthopaedic Surgery | DX: L03.011 Cellulitis of right finger (principal); L98.0 Pyogenic granuloma | CPT/HCPCS: 99202 ==

== ENCOUNTER 2022-05-30 09:33 | Day surgery (SDC) | payer MEDICAID, SELFPAY ==
--- NOTE | 2022-05-29 09:21 | P.CONAN_ITS ---
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
[2022-05-30 09:54] VITALS: BP 100/59; PULSE 56; RESP 18; TEMP 36.8; O2SAT 98
--- NOTE | 2022-05-30 09:58 | MHC.SHP ---
Pre-Procedural Eval Section A Date of Service: 05/30/22 The patient is an INPATIENT: No The History & Physical has been completed within 30 days and I have reviewed it.: Yes Section B Chief Complaint: felon, finger mass Allergies: Allergies Allergy/AdvReac Type Severity Reaction Status Date / Time bee pollen [BEE STINGS] Allergy Unknown ANAPHYLAXIS Verified 05/28/22 15:01 pollen extracts [POLLEN] Allergy Unknown WATERY/ITCHY Verified 05/28/22 15:01 EYES Plan I have reviewed the history and physical and performed a pertinent physical examination on my patient. No changes have occurred unless specified. Appearance of finger is improved today. I believe we can now do this under local anesthetic rather than general anesthesia or MAC.
--- NOTE | 2022-05-30 10:00 | P.OP_ITS ---
Operative Note Operative Note Date of Service: 05/30/22 Narrative: Operative Note Preop diagnosis: 1. Right middle finger felon and paronychia Postop diagnosis: same Procedure: 1. right middle finger I&D felon and paronychia Surgeon: Jodie Dennis MD Anesthesia: digital block using 1% lidocaine with epinephrine Findings: the friable mass that was worrisome for a possible pyogenic granuloma peers to have resolved. He did have purulence beneath the ulnar p aronychial fold. Small amount of purulence was also found in the pulp of the finger. EBL: Less than 5 mL Tourniquet time: None Specimens: Cultures taken Complications: None Disposition: Brought to recovery room in stable condition Plan: continue antibiotics follow-up next week for wound check Indications: The patient is 27 years old, with a right middle finger paronychial infection that went on to become a felon. It also appeared that he might be developing a pyogenic granuloma at the pole cold I and D . The risks and benefits of operative treatment including but not limited to risk of damage to blood vessels, nerves, tendons, infection, persistent pain, persistent symptoms, recurrence or possible need for additional surgery were discussed with the patient and the patient wishes to proceed with surgery. Procedure: Once consent was obtained a digital block was performed in the preop area using a combination of 1% lidocaine with epinephrine. The patient was then brought back to the operating suite and placed on the operative table in supine position. A tourniquet was applied to the proximal aspect of the left upper extremity and the limb was prepped and draped in a standard surgical fashion. Once assured that we had a good block, I debrided the finger of some nonviable tissue. I then used some iris scissors to open up the small area of drainage beneath the nail plate and the ulnar paronychial fold. There was a small amount of purulence in this area in the purulent material was cultured. I then made a 1 cm oblique incision over the area of maximal tenderness in the pulp of the middle finger. Incision was made through the skin to the subcutaneous tissues. I then dissected down into the pulp where we found a small amount of purulent material. This area, as we would expect, connected with the paronychia low wound. I then copiously irrigated through both of these wounds using a syringe with an Angiocath. Hemostasis was then obtained with a brief period local pressure. There was no need for suture placement. A sterile dressing was applied. The patient appears to have tolerated the procedure well and with no complicati ons. All digits were well vascularized at the conclusion of the case.
[2022-05-30 11:28] VITALS: BP 100/56; PULSE 58; RESP 18; TEMP 36.3; O2SAT 98
== END 2022-05-30 11:30 | disposition home or self-care (01) ==
PROVIDERS: Visit Provider Orthopaedic Surgery
PROC: (CPT 26011; principal; 2022-05-30 10:00)
DX: L03.011 Cellulitis of right finger (principal); B96.89 Other specified bacterial agents as the cause of diseases classified elsewhere
CPT/HCPCS: 26011; 87071; 87205; J0171; J2250; J3010

== ENCOUNTER 2023-07-01 18:51 | Emergency (ER) | payer MEDICAID, SELFPAY ==
[2023-07-01 20:01] VITALS: BP 122/61; PULSE 62; RESP 20; O2SAT 98; BMI 29.7
--- NOTE | 2023-07-01 20:02 | ED.BACK ---
HPI - Back Pain/Injury General Chief Complaint: Back Pain/Injury Stated Complaint: back pain Time Seen by Provider: 07/01/23 20:02 Source: patient Mode of arrival: ambulatory Limitations: no limitations History of Present Illness HPI Narrative: 28 yo male presents to the Er for evaluation of left lower back pain that started several days ago after lifting heavy boxes at work. 3rd injury since starting this new job. Pain is in the left lower back, radiates to the left hip at times and is worse with movement and coughing. No bowel or bladder incontinence. No weakness, numbness or tingling in the left leg. No fever or chills. No hx IVDA MD elicited complaint: back pain and back injury Pertinent past history: prior back pain Onset (ago): day(s) Timing: progressively worsening Severity: moderate Pain scale (0-10): 6 Quality: stabbing, aching and spasming Location: left lower back Radiation: other (left hip) Exacerbating factors: movement, coughing/sneezing and lifting Relieving factors: immobilization Context: while lifting and turning/twisting Associated symptoms: denies other symptoms Treatments prior to arrival: acetaminophen Work related injury: Yes Related Data Previous Rx's Medication Instructions Recorded acetaminophen 325 mg tablet 650 mg PO Q6H PRN fever or pain 03/23/22 (Tylenol) #20 tabs dextromethorphan-guaifenesin 5 10 ml PO Q4-8H PRN cough #118 mL 04/17/22 mg-100 mg/5 mL oral liquid (Robitussin Cough-Chest Congestion DM) doxycycline monohydrate 100 mg 100 mg PO BID #20 tabs 05/21/22 tablet hydrocodone 5 mg-acetaminophen 325 1 tab PO Q4-6H PRN pain #5 tabs 05/30/22 mg tablet cyclobenzaprine 10 mg tablet 10 mg PO TID PRN muscle spasm #14 07/01/23 tabs ibuprofen 600 mg tablet 600 mg PO Q8H PRN pain #20 tabs 07/01/23 lidocaine 5 % topical patch 1 patch topical DAILY #15 ea 07/01/23 Allergies Allergy/AdvReac Type Severity Reaction Status Date / Time bee pollen [BEE STINGS] Allergy Unknown ANAPHYLAXIS Verified 05/28/22 15:01 pollen extracts [POLLEN] Allergy Unknown WATERY/ITCHY Verified 05/28/22 15:01 EYES Review of Systems Review of Systems: Yes all other systems are reviewed and are negative [facility] Past Medical History Medical History No known health problems Social History Social History Patient Tobacco Use Status: Never used Tobacco Advance Directives: No Advance Directives Information Provided: No Current occupational status: employed 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 Oriented X3. No acute distress. HEENT: normal inspection CVS: Normal heart rate and rhythm. Pulses normal. Respiratory: No respiratory distress. Skin: Skin warm and dry. Normal skin color. Normal skin turgor. No rashes. Back: normal inspection, no midline tenderness of the thoracic or lumbar spine. +soft tissue tenderness of the left lower lumbar area. no SI joint tenderness. Extremities: normal inspection x4. no LE swelling Neuro: Oriented X 3. No motor deficit. No sensory deficit. steady gait. grossly normal. Medical Decision Making Medical Decision Making MDM Narrative: 28 yo male presenting with left sided LBP for a few days after heavy lifting. No red flag symptoms of LBP. Exam c/w muscular spasm. will treat accordingly and have him f/u with his PCP and [facility] for further management. stable for d/c home. Differential Diagnosis Differential Diagnoses: The differential diagnosis associated with the presentation includes Inflammatory disorders, malignancy, trauma, osteoporosis, nerve root compression, radiculopathy, plexopathy, degenerative disc disease, disc herniation, spinal stenosis, sacroiliac joint dysfunction, facet joint injury, and less likely infection?like abscess or diskitis External Record Review External record reviewed: Prior outpatient labs Tests considered The following testing was considered but not selected: considered UA and X-ray spine but no midline tenderness and no urinary symptoms. no CVA tenderness Prescription Management I considered prescription management with: Pain Medication and Other (muscle relaxer) Critical Care Time Critical Care Time Critical Care Time: No Discharge Plan Discharge Clinical Impression: Lumbar strain Patient Disposition: Home, Self-Care Instructions: Low Back Strain (ED), Lower Back Exercises (ED) Additional Instructions: Your pain is most likely due to muscle strain and spasm. No bending, lifting or twisting. Use ice several times per day for 20 minutes at a time for the next 48 hours and then change to heat. Take medications as prescribed to help with pain and discomfort. Follow up with your Primary Care Doctor this week. If your pain worsens, if you develop new numbness, tingling, weakness, loss of function or incontinence call 911 or come back to the ER right away for evaluation. Prescriptions: New cyclobenzaprine 10 mg tablet 10 mg PO TID PRN (Reason: muscle spasm) Qty: 14 0RF ibuprofen 600 mg tablet 600 mg PO Q8H PRN (Reason: pain) Qty: 20 0RF lidocaine 5 % adhesive patch,medicated 1 patch topical DAILY Qty: 15 0RF Rx Instructions: leave on most painful area for up to 12 hrs No Action acetaminophen [Tylenol] 325 mg tablet 650 mg PO Q6H PRN (Reason: fever or pain) Qty: 20 0RF doxycycline monohydrate 100 mg tablet 100 mg PO BID Qty: 20 0RF Robitussin Cough-Chest Esteban DM 5-100 mg/5 mL liquid 10 ml PO Q4-8H PRN (Reason: cough) Qty: 118 0RF hydrocodone-acetaminophen 5-325 mg tablet 1 tab PO Q4-6H PRN (Reason: pain) Qty: 5 0RF Rx Instructions: Partial Fill upon patient request. Referrals: [facility] [Provider Group] (low back injury at work) Stand Alone Forms: Work/School Release Interventions: ED Discharge Assessment Last Done: 07/01/23 20:07
== END 2023-07-01 20:55 | disposition home or self-care (01) ==
PROVIDERS: Emergency Provider Internal Medicine
DX: S39.012A Strain of muscle, fascia and tendon of lower back, initial encounter (principal); X50.0XXA Overexertion from strenuous movement or load, initial encounter; Y93.89 Activity, other specified; Y92.59 Other trade areas as the place of occurrence of the external cause; Y99.0 Civilian activity done for income or pay
CPT/HCPCS: 99282; 99283

== ENCOUNTER 2023-08-18 00:41 | Emergency (ER) | payer MEDICAID, SELFPAY ==
[2023-08-18 00:49] VITALS: BP 135/66; PULSE 103; RESP 20; TEMP 37.3; O2SAT 98; BMI 29.2
[2023-08-18 01:17] LABS: COVID-19 Test Negative (Negative); IDNOW Serial# 08D9AD1C; IDNOW Serial# BCCEAD1C; Influenza A Negative (Negative); Influenza B2 Negative (Negative)
[2023-08-18] MEDS: Ibuprofen 600 MG TABLET PO (01:52)
[2023-08-18] MEDS: Acetaminophen 325 MG TABLET 650 MG PO (01:52)
[2023-08-18 01:53] VITALS: TEMP 38.2
--- NOTE | 2023-08-18 02:40 | ED_ITS ---
HPI - General Adult General Chief complaint: General Medical Stated complaint: Dizziness/Vomiting/Fever Time Seen by Provider: 08/18/23 02:39 Source: patient Mode of arrival: ambulatory Limitations: no limitations History of Present Illness HPI narrative: 28-year-old male who presents emergency department for evaluation of fever, chills, body aches, nonproductive cough, chest pain and shortness of breath x2 days. Patient states that he was at work today the symptoms got worse who came into emergency department for evaluation. Patient states that he has had multiple episodes of vomiting throughout the day and has not been able to eat or drink. Patient has also had persistent nausea. He had several loose stools. He did not notice any blood in the emesis or the stools. Related Data Previous Rx's Medication Instructions Recorded acetaminophen 325 mg tablet 650 mg (2 x 325 mg) PO Q6H PRN 03/23/22 (Tylenol) fever or pain #20 tabs dextromethorphan-guaifenesin 5 10 ml PO Q4-8H PRN cough #118 mL 04/17/22 mg-100 mg/5 mL oral liquid (Robitussin Cough-Chest Congestion DM) doxycycline monohydrate 100 mg 100 mg PO BID #20 tabs 05/21/22 tablet hydrocodone 5 mg-acetaminophen 325 1 tab PO Q4-6H PRN pain #5 tabs 05/30/22 mg tablet cyclobenzaprine 10 mg tablet 10 mg PO TID PRN muscle spasm #14 07/01/23 tabs ibuprofen 600 mg tablet 600 mg PO Q8H PRN pain #20 tabs 07/01/23 lidocaine 5 % topical patch 1 patch topical DAILY #15 ea 07/01/23 ondansetron 4 mg disintegrating 4 mg PO Q6-8H PRN nausea and 08/18/23 tablet vomiting #14 tabs Allergies Allergy/AdvReac Type Severity Reaction Status Date / Time bee pollen [BEE STINGS] Allergy Unknown ANAPHYLAXIS Verified 08/18/23 00:48 pollen extracts [POLLEN] Allergy Unknown WATERY/ITCHY Verified 08/18/23 00:48 EYES PMFSH Past Medical History PMFSH Narrative: Social history: The patient denies tobacco use. Occasionally drinks alcohol. He does smoke marijuana. 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[employer]/ rt 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 Physical Exam ED Vital Signs: Vital Signs - 24 hr 08/18/23 00:49 08/18/23 01:53 Temperature 99.2 F 100.7 F H Pulse Rate 103 H Respiratory Rate 20 Blood Pressure 135/66 Pulse Oximetry 98 Oxygen Delivery Method Room Air BMI result Body Mass Index 29.2 Vital signs reveal a low-grade fever of 100.7, elevated pulse of 103, otherwise under Exam: General: Awake, alert in no distress, diaphragm Head: Normocephalic, atraumatic EENT: PERRL, Lids normal, sclera normal, conjunctiva normal, nose normal , ears normal, throat without erythema or exudates Neck: Supple, no adenopathy, trachea midline and nontender Lung: breath sounds symmetric, no wheezing, rales or rhonchi Chest: symmetric movement, nontender Heart: regular rate and rhythm, normal S1, S2 no murmurs or rubs Abdomen: soft, non-tender, nondistended, normal bowel sounds Back: no vertebral tenderness, no CVAT Extremities: no deformities, moves all extremities symmetrically Skin: no rashes, no lesion, normal color and warmth Neuro: Awake, alert, oriented, normal speech, cranial nerves intact, moves all extremities symmetrically Psych: Pleasant, cooperative Medications Administered Discontinued Medications Generic Name Dose Route Start Last Admin Trade Name Freq PRN Reason Stop Dose Admin Acetaminophen 650 mg 08/18/23 01:48 08/18/23 01:52 Acetaminophen 325 Mg Tablet PO 08/18/23 01:49 650 mg ONCE ONE Administration Ibuprofen 600 mg 08/18/23 01:48 08/18/23 01:52 Ibuprofen 600 Mg Tablet PO 08/18/23 01:49 600 mg ONCE ONE Administration Medical Decision Making Medical Decision Making MDM Narrative: 28-year-old male who presents emergency department for evaluation of 2 days of subjective fever, body aches, sore throat, nausea vomiting, diarrhea, nonproductive cough. Patient's vital signs did reveal an elevated pulse and low-grade fever of 100.7 degrees F. the patient was diaphoretic otherwise exam was unremarkable. Following evaluation was ordered COVID-19 and influenza. 0254: Patient's COVID-19 influenza tests were negative Patient's presentation is consistent with acute viral syndrome. Patient was treated with Tylenol and ibuprofen orally here in the emergency department he also received Zofran 4 mg ODT. Patient was advised to take Tylenol ibuprofen for fever and body aches, was also given a prescription for Zofran 4 mg ODT every 6-8 hours as needed for nausea and vomiting. He was given a work note. He was given printed and verbal instructions discharged home Differential Diagnosis Differential Diagnoses: The differential diagnosis associated with the presentation includes Differential diagnosis includes was not limited to pneumonia, bacterial bronchitis, viral bronchitis, COVID-19 infection, influenza, viral syndrome Lab Data MDM Lab Attestation statement: I reviewed the patient's lab results. My independent interpretation patient's laboratory evaluation is as follows: COVID-19 was negative, influenza was negative. Labs: Lab Results 08/18/23 Range/Units 00:57 COVID-19 ([facility]) Negative (Negative) COVID-19 Clin Com See Note Influenza Type A ([facility]) Negative (Negative) Influenza Type B ([facility]) Negative (Negative) Influenza A & B Note See Note Discharge Plan Discharge Clinical Impression: Viral syndrome Vomiting Qualifiers: Vomiting type: unspecified Nausea presence: with nausea Qualified Code(s): R11.2 - Nausea with vomiting, unspecified Patient Disposition: Home, Self-Care Instructions: Viral Syndrome (ED) Additional Instructions: Your COVID-19 and influenza tests were negative. Your symptoms are caused by a virus Take ibuprofen 200 mg pills, 2 pills every 6 hours as needed for pain or fever. Take Tylenol (acetaminophen) 500 mg pills, 2 pills every 6 hours as needed for pain or fever. Take Zofran ODT 4 mg pills, 1 pill dissolved in your mouth every 8 hours as needed for nausea and vomiting. Follow-up with your doctor in 2 days. Please return to the emergency department if your symptoms get worse or if you develop any symptoms that are concerning to you. Please see the work note Prescriptions: New ondansetron 4 mg tablet,disintegrating 4 mg PO Q6-8H PRN (Reason: nausea and vomiting) Qty: 14 0RF No Action acetaminophen [Tylenol] 325 mg tablet 650 mg PO Q6H PRN (Reason: fever or pain) Qty: 20 0RF doxycycline monohydrate 100 mg tablet 100 mg PO BID Qty: 20 0RF Robitussin Cough-Chest Esteban DM 5-100 mg/5 mL liquid 10 ml PO Q4-8H PRN (Reason: cough) Qty: 118 0RF hydrocodone-acetaminophen 5-325 mg tablet 1 tab PO Q4-6H PRN (Reason: pain) Qty: 5 0RF Rx Instructions: Partial Fill upon patient request. cyclobenzaprine 10 mg tablet 10 mg PO TID PRN (Reason: muscle spasm) Qty: 14 0RF ibuprofen 600 mg tablet 600 mg PO Q8H PRN (Reason: pain) Qty: 20 0RF lidocaine 5 % adhesive patch,medicated 1 patch topical DAILY Qty: 15 0RF Rx Instructions: leave on most painful area for up to 12 hrs Stand Alone Forms: Work/School Release
[2023-08-18] MEDS: Ondansetron ODT 4 MG TAB.RAPDIS TRANSLINGU (03:03)
[2023-08-18 03:08] VITALS: BP 138/71; PULSE 103; RESP 18; TEMP 37.7; O2SAT 97
== END 2023-08-18 03:09 | disposition home or self-care (01) ==
PROVIDERS: Emergency Provider Emergency Medicine Emergency Medical Services
DX: B34.9 Viral infection, unspecified (principal); R11.2 Nausea with vomiting, unspecified; R42 Dizziness and giddiness; R05.9 Cough, unspecified; R06.02 Shortness of breath; Z20.822 Contact with and (suspected) exposure to COVID-19; Z20.828 Contact with and (suspected) exposure to other viral communicable diseases; Z79.899 Other long term (current) drug therapy
CPT/HCPCS: 87502; 87635; 99283; 99284